=== PATIENT | female | born 1950 | race Caucasian/White ===

== ENCOUNTER 2016-10-09 12:30 | Inpatient (IN) | payer OTHER ==
[~2016-10-09] VITALS: Ht 162.6 cm; Wt 65.8 kg
--- NOTE | ~2016-10-09 | O ---
[facility] [place] [address] OPERATIVE REPORT Name: JOSIAS POWELL Room #: 533-P ADM IN M.R.#: [id number] Admission: 10/09/16 Attend Phys: Layton Nava DO Discharge: Date of : 50 Report #: [id number] THIS REPORT FOR: //name// CC: Layton Bazan DATE OF SERVICE: 10/10/2016 PREOPERATIVE DIAGNOSIS: Left hip femoral neck fracture. POSTOPERATIVE DIAGNOSIS: Left hip femoral neck fracture. PROCEDURE: Left hip hemiarthroplasty. SURGEON: Winston Zarate MD. STICKER MACHINE OPERATOR: Ariel Díaz, nurse practitioner. INDICATIONS FOR STICKER MACHINE OPERATOR: During the course of operation, extensive manipulation, retraction, and limb positioning was required. This was afforded to me by my statistical assistant. ANESTHESIA: General. INDICATIONS: See hospital H and P revisions, 10/10/2016. IMPLANTS UTILIZED: We used a Onia HFX stem with size 5 cemented stem, +0 neck length and a 42 outer diameter bipolar head. DESCRIPTION OF PROCEDURE: After adequate general anesthesia had been obtained, the patient was placed in a lateral decubitus position with left hip up. Left hip and lower extremity were prepped and draped in the usual meticulous sterile fashion. Posterolateral incision was made to the hip, subQ divided sharply. Hemostasis was obtained with electrocautery. The IT band gluteal fascial layer was divided. It was then retracted with a Charnley retractor. The hip was internally rotated and external rotators were detached at their insertion, tagged, and retracted posteriorly. Capsular incision was made. The neck was freed of soft tissue. Starter awl placed at the base of the neck and advanced to the canal. Canal was sequentially reamed to a size 7. Neck osteotomy was performed. Head was then removed. We measured the head, measured just a little more than 43 outer diameter, so, that was the size we selected. We then sequentially broached the femur to a size 7, and trial reduced her. This gave us good leg lengths and good stability parameters, because of her bone not being [facility] [address] [place] [address] OPERATIVE REPORT Name: JOSIAS POWELL Room #: 533-P ADM IN M.R.#: [id number] Admission: 10/09/16 Attend Phys: Layton Nava DO Discharge: Date of : 50 Report #: [id number] particularly of high quality, I felt cementing was the best option for her. We removed the trial implants, irrigated copiously, placed the cement down the femur. We vacuum mixed the cement, and when it reached the appropriate consistency, the femur was dried. The cement was placed, and the stem was then impacted into place and held in place until the cement fully cured. The trial reduction was performed once again, and we had good stability parameters. We went ahead and placed the +0 neck length 43 bipolar head. The hip was then reduced. The capsule was reapproximated with fiberwire suture, interrupted [id number]. We placed the piriformis back to the trochanter by placing drill holes in the trochanter and tying the sutures over a bone bridge. Drains were placed deep and superficial. IT band and gluteal fascia was closed with a combination of interrupted [id number] #1 Vicryl as well as running #1 Tevdek. SubQ closed with 2-0 Monocryl in multiple layers due to the patient's size. Skin was closed with matthew. Sterile compressive dressing was applied. By: 1601 [id number] Winston Zarate MD /nt
--- NOTE | ~2016-10-09 | EKG ---
[place] [address] [facility] [place] [address] ELECTROCARDIOGRAM REPORT Name: JOSIAS POWELL Room #: 533-P ADM IN M.R.#: [id number] Admission: 10/09/16 Attend Phys: Layton Nava DO Discharge: Date of : 50 Report #: [id number] THIS REPORT FOR: //name// [facility] ED Test Date: 2016-10-09 Test Time: 13:14:53 Pat Name: JOSIAS POWELL Department: Room: 533 Gender: F Breakdown Worker: MZOOMaria Elena : 1950 Requested By: Pancho Garcia Order Number: [id number] MD: Carlos Rosario Measurements Intervals Hagerman Rate: 78 P: 63 IA: 143 QRS: -10 QRSD: 93 T: 41 QT: 401 QTc: 457 Interpretive Statements Sinus rhythm Supraventricular bigeminy No previous ECG available for comparison Electronically Signed On 10-10-2016 7:17:32 CDT by Carlos Rosario [email or web address] <ELECTRONICALLY SIGNED> By: Carlos Rosario MD, [facility] 10/10/16 0717 1314 1314 Carlos Rosario MD, FACC /EPI
[2016-10-09 12:31] VITALS: BP 164/72
[2016-10-09] MEDS ORDERED: VENTOLIN HFA 1818 GM INH (13:53)
[2016-10-09] MEDS ORDERED: ASPIR 8181 M1 PO (13:54)
[2016-10-09 14:06] LABS: HEMATOCRIT 37.3 % (37.0-47.0); HEMOGLOBIN 12.3 gm/dL (12.0-15.0); MCH 30.1 pg (26.0-34.0); MCV 91.4 fL (80.0-100.0); PLATELET COUNT 355 thou/uL (150-400); RBC 4.08 mil/uL (4.20-5.00); WBC 12.3 thou/uL (4.0-11.0)
[2016-10-09 14:07] VITALS: BP 153/63
[2016-10-09 14:11] LABS: MANUAL DIFF YES
[2016-10-09 14:19] LABS: ANION GAP 9 mmol/L (7-16); BUN 13 mg/dL (7-18); CALCIUM 9.2 mg/dL (8.5-10.1); CHLORIDE 104 mmol/L (98-107); CO2 26 mmol/L (21-32); CREATININE 0.9 mg/dL (0.6-1.0); GLUCOSE 104 mg/dL (74-106); PROTIME 10.5 Seconds (9.3-11.4); SODIUM 139 mmol/L (136-145)
[2016-10-09 14:25] VITALS: BP 131/67
[2016-10-09 14:26] LABS: ALBUMIN 3.7 g/dL (3.4-5.0); ALKALINE PHOSPHATASE 86 U/L (46-116); SGOT 28 U/L (15-37); SGPT 26 U/L (30-65); TOTAL BILIRUBIN 0.5 mg/dL (<0.1-1.0); TOTAL PROTEIN 6.6 g/dL (6.4-8.2); TROPONIN-I < 0.04 ng/mL (<0.04-0.07)
[2016-10-09 15:23] LABS: ABSOLUTE NEUTROPHILS 12.1 thou/uL (1.4-8.2); ANISOCYTOSIS 1+; TOTAL CELL COUNT 100
[2016-10-09 21:00] VITALS: BP 129/67
[2016-10-10] VITALS (8 sets, daily range): BP systolic 107–148; BP diastolic 53–97
[2016-10-10 05:29] LABS: HEMATOCRIT 34.9 % (37.0-47.0); HEMOGLOBIN 11.6 gm/dL (12.0-15.0); MCH 30.6 pg (26.0-34.0); MCHC 33.3 g/dL (28.0-37.0); MCV 91.7 fL (80.0-100.0); PLATELET COUNT 324 thou/uL (150-400); RBC 3.81 mil/uL (4.20-5.00); RDW 15.5 % (10.5-14.5); WBC 14.6 thou/uL (4.0-11.0)
[2016-10-10 05:39] LABS: CALCIUM 8.9 mg/dL (8.5-10.1); POTASSIUM 4.4 mmol/L (3.5-5.1)
[2016-10-10 05:58] LABS: MANUAL DIFF YES
[2016-10-10 07:10] LABS: ABSOLUTE NEUTROPHILS 12.4 thou/uL (1.4-8.2); TOTAL CELL COUNT 100
[2016-10-10 07:11] LABS: ANISOCYTOSIS 1+
[2016-10-11 01:27] VITALS: BP 112/70
[2016-10-11 07:04] LABS: HEMATOCRIT 27.7 % (37.0-47.0); MCH 30.6 pg (26.0-34.0); MCV 92.9 fL (80.0-100.0); RBC 2.98 mil/uL (4.20-5.00); RDW 15.1 % (10.5-14.5); WBC 9.1 thou/uL (4.0-11.0)
[2016-10-11 07:18] LABS: HEMOGLOBIN 9.1 gm/dL (12.0-15.0)
[2016-10-11 07:46] VITALS: BP 135/75
[2016-10-11 15:32] VITALS: BP 127/101
[2016-10-11 16:50] VITALS: BP 127/101
[2016-10-11 18:54] VITALS: BP 121/62
[2016-10-12 04:39] VITALS: BP 141/68
[2016-10-12 04:56] LABS: HEMATOCRIT 28.5 % (37.0-47.0); HEMOGLOBIN 9.6 gm/dL (12.0-15.0); MCH 31.1 pg (26.0-34.0); MCHC 33.8 g/dL (28.0-37.0); MCV 92.1 fL (80.0-100.0); RBC 3.1 mil/uL (4.20-5.00); RDW 15.1 % (10.5-14.5); WBC 8.4 thou/uL (4.0-11.0)
[2016-10-12 07:15] VITALS: BP 147/67
[2016-10-12 15:05] VITALS: BP 144/81
[2016-10-12 20:43] VITALS: BP 134/66
[2016-10-13 06:18] VITALS: BP 143/76
[2016-10-13 07:03] LABS: ABSOLUTE NEUTROPHILS 5.7 thou/uL (1.4-8.2); BASOPHILS 0.4 % (0.0-2.0); EOSINOPHILS 2.6 % (0.0-3.0); HEMATOCRIT 25.6 % (37.0-47.0); HEMOGLOBIN 8.8 gm/dL (12.0-15.0); LYMPHOCYTES 13.3 % (24.0-44.0); MCHC 34.2 g/dL (28.0-37.0); MCV 90.7 fL (80.0-100.0); MONOCYTES 6.5 % (1.0-8.0); PLATELET COUNT 237 thou/uL (150-400); POLYS 77.2 % (36.0-66.0); RBC 2.83 mil/uL (4.20-5.00); RDW 15.5 % (10.5-14.5); WBC 7.4 thou/uL (4.0-11.0)
[2016-10-13 07:04] LABS: MANUAL DIFF NO
[2016-10-13 07:05] LABS: CREATININE 0.9 mg/dL (0.6-1.0); POTASSIUM 4.2 mmol/L (3.5-5.1)
[2016-10-13 08:00] VITALS: BP 137/72
[2016-10-13 18:13] VITALS: BP 144/84
[2016-10-13 20:50] VITALS: BP 152/72
[2016-10-14 02:05] VITALS: BP 156/91
[2016-10-14 07:40] VITALS: BP 175/84
[2016-10-14] MEDS ORDERED: HYDROCODONE-APA1 TA1 PO (09:45)
[2016-10-14] MEDS ORDERED: XARELTO15 MG PO (09:46)
[2016-10-14 16:54] VITALS: BP 160/75
[2016-10-14 17:44] VITALS: BP 127/101
== END 2016-10-14 19:11 | disposition home health service (06) | DRG 470 ==
LOC: ER 12:30 → 5S 13:20 → EROBS 13:20 → 5S 14:08
PROVIDERS: Family Medicine; Internal Medicine Endocrinology, Diabetes & Metabolism; Orthopaedic Surgery; Physician Assistant
PROC: 0SRS0J9 Replacement of Left Hip Joint, Femoral Surface with Synthetic Substitute, Cemented, Open Approach (ICD-10-PCS; principal; 2016-10-10)
DX: S72.002A Fracture of unspecified part of neck of left femur, initial encounter for closed fracture (principal); M06.9 Rheumatoid arthritis, unspecified; J45.909 Unspecified asthma, uncomplicated; R42 Dizziness and giddiness; Z88.0 Allergy status to penicillin; Z88.2 Allergy status to sulfonamides; Z88.1 Allergy status to other antibiotic agents; Z87.891 Personal history of nicotine dependence; Z98.42 Cataract extraction status, left eye; Z90.710 Acquired absence of both cervix and uterus; Z98.41 Cataract extraction status, right eye; Z79.899 Other long term (current) drug therapy; W18.39XA Other fall on same level, initial encounter; Y93.89 Activity, other specified; Y92.89 Other specified places as the place of occurrence of the external cause; Y99.8 Other external cause status
CPT/HCPCS: 10086; 50010; 50101; 50382; 50414; 50455; 50939; 51057; 51130; 51225; 51412; 51771; 53000; 55430; 56521; 56525; 56527; 57095; 62110; 62900; 70005